=== PATIENT | male | born 1985 | race Caucasian/White ===

== ENCOUNTER 2016-10-22 21:53 | Emergency (ER) | payer OTHER ==
[2016-10-22] MEDS ORDERED: LIDOCAINE 2% 20 ML ONE (23:59)
[2016-10-23] MEDS ORDERED: TDaP 0.5 ML VIAL IM.VACC ONE (00:15)
== END 2016-10-23 00:49 | disposition home or self-care (01) ==
LOC: ER 21:53
CPT/HCPCS: 90471